=== PATIENT | male | born 1970 | race American Indian/Alaskan Native ===

== ENCOUNTER 2017-11-14 10:14 | Outpatient (CLI) | payer MEDICARE ==
--- NOTE | 2017-11-14 17:40 | XRay Report ---
FINAL REPORT EXAM: XR KNEE BILAT 3V HISTORY: OSTEOARTHRITIS OF KNEE TECHNIQUE: Bilateral knees 5 right 5 left PRIORS: None. FINDINGS: Right knee demonstrates intramedullary bianca within the tibia with locking screws present. Remote healed tibia and fibular fractures noted. No acute fracture identified. No evidence for joint effusion. There is some narrowing of the medial and lateral tibiofemoral joint space. Patella is normal in position Left knee demonstrates is is no fracture or dislocation. Joint spaces appear within normal limits. No focal bony lesions identified. IMPRESSION: Intramedullary bianca within the right tibia ORIF of remote fractures Mild degenerative changes at the right knee with tibiofemoral joint space narrowing
== END 2017-11-14 10:15 | disposition home or self-care (01) ==
LOC: XRAY 10:14
DX: M17.11 Unilateral primary osteoarthritis, right knee (principal); S82.201D Unspecified fracture of shaft of right tibia, subsequent encounter for closed fracture with routine healing; S82.401D Unspecified fracture of shaft of right fibula, subsequent encounter for closed fracture with routine healing; X58.XXXD Exposure to other specified factors, subsequent encounter

== ENCOUNTER 2018-11-13 21:07 | Inpatient (IN) | payer MEDICARE ==
[2018-11-13] MEDS ORDERED: VITAMIN B-1 100 MG, FOLVITE 1 MG, INFUVITE 10 ML in NACL 0.9% 1000 ML 1,000 ML IV ONE (21:12)
[2018-11-13] MEDS ORDERED: ATIVAN IM PRN (21:12)
[2018-11-13] MEDS ORDERED: HALDOL IM PRN (21:12)
--- NOTE | 2018-11-13 21:14 | Emergency Department Report ---
<NABEEL HARRIS - Last Filed: 11/14/18 05:36> ED General Adult HPI - General Chief complaint: Alcohol Stated complaint: ETOH Time Seen by Provider: 11/13/18 21:11 Source: patient, EMS (verbal report received from EMS.ems notes not available at time of chart dictation), RN notes reviewed Mode of arrival: Stretcher Limitations: Altered Mental Status, Other (patient is drunk) - History of Present Illness Initial comments: This is an approximately 48-year-old gentleman, -Serbian, unknown to this provider previously, who is brought to the hospital by EMS for alcohol intoxication. Apparently, patient was drunk at an outside store. Patient is to drunk to give corroborating information or collateral information. EMS reports the patient wasn't violent, only drunk. In the emergency room, the patient is quite intoxicated, and does not exhibit decision-making capacity. At one point in time, the patient tried to get up out of bed, and then urinated on the stretcher. He did not respond to verbal D escalation techniques, and did not respond to show of force. He is placed on a 2013, and required Haldol and Ativan to allow for acquisition of urgent diagnostics necessary to exclude traumatic injury, and to help control patient's behavior to avoid self-harm or harm to staff members or other patients. No pro tional family is available at this point time for collateral information. -: unknown Quality: other Consistency: other Improves with: other Worsens with: other - Related Data Allergies Allergy/AdvReac Type Severity Reaction Status Date / Time No Known Allergies Allergy Verified 11/13/18 22:07 ED Review of Systems Comment: Unobtainable due to pts medical conditions ED Physical Exam - General Limitations: Altered Mental Status, Other (intoxication) General appearance: appears intoxicated - Head Head exam: Present: atraumatic, normocephalic - Eye Eye exam: Present: normal appearance, EOMI - ENT ENT exam: Present: normal exam, normal orophraynx, normal external ear exam - Neck Neck exam: Present: normal inspection (superficial scratch rodriguez noted on the right side of the neck and posterior neck), full ROM. Absent: tenderness, me ningismus - Respiratory Respiratory exam: Present: rhonchi. Absent: respiratory distress, wheezes, rales - Cardiovascular Cardiovascular Exam: Present: normal rhythm, tachycardia, normal heart sounds. Absent: bradycardia, irregular rhythm - GI/Abdominal GI/Abdominal exam: Present: soft. Absent: distended, tenderness, guarding, rebound, rigid, pulsatile mass - exam: Present: normal inspection External exam: Present: normal external exam - Extremities Exam Extremities exam: Present: normal inspection, full ROM, other (2+ pulses noted in the bilateral upper, lower extremities. Compartments soft. No long bony tenderness. The pelvis is stable.). Absent: tenderness, pedal edema, calf tenderness - Back Exam Back exam: Present: normal inspection, full ROM. Absent: tenderness, CVA tenderness (R), paraspinal tenderness, vertebral tenderness - Neurological Exam Neurological exam: Present: altered (unable to complete detailed neurologic examination secondary to alcohol intoxication), other (moving 4 extremities) - Psychiatric Psychiatric exam: Present: agitated - Skin Skin exam: Present: warm ED Course - Reevaluation(s) Reevaluation #1: 11/13/18 22:53 Differential diagnosis, including not limited to: Alcohol intoxication, malnutrition, aspiration pneumonitis, pneumonia, electrolyte derangement, myositis Assessment and plan: 48-year-old gentleman who is intoxicated, lacks decision- making capacity, and is unable to exhibit decision-making capacity. He is placed on the 2013. Noncontrast CT scan of the brain, cervical spine pending interpretation to exclude traumatic injury. Screening laboratory studies have demonstrated hypoglycemia, elevated creatinine kinase, and elevated blood alcohol level. Patient will be given a banana bag, D5 half-normal, 1 amp of D50, and he'll be placed on fingersticks for every 1 hour. Case management and psychiatric consultation have been requested. Reevaluation #2: 11/13/18 23:[address] scan of the brain, cervical spine negative for acute disease. X-ray the chest is negative for acute disease. Reevaluation #3: 11/14/18 04:46 Sleeping comfortably. No acute distress. Repeat blood alcohol level improved. Repeat Accu-Cheks acceptable and within normal limits. We are awaiting the patient to wake up. Reevaluation #4: 11/14/18 04:49 Blood sugar of 49. Additional D50 IV ordered. Additional D5 half-normal ordered. Reevaluation #5: 11/14/18 05:36 Care will be transferred to the oncoming physician, Dr. Luis Tatum to follow-up, and reassessed the patient once he is awake and sober. ED Medical Decision Making - Lab Data Result diagrams: 11/13/18 21:36 11/13/18 21:36 Vital Signs 11/13/18 11/13/18 21:11 21:17 Temperature 98.7 F Pulse Rate 114 H Respiratory 20 20 Rate Blood Pressure 166/94 [Left] O2 Sat by Pulse 100 100 Oximetry Lab Results 11/13/18 11/13/18 11/13/18 Range/Units 21:36 21:36 21:36 WBC 7.5 (4.5-11.0) K/mm3 RBC 4.53 (3.65-5.03) M/mm3 Hgb 14.7 (11.8-15.2) gm/dl Hct 41.9 (35.5-45.6) % MCV 92 (84-94) fl MCH 33 H (28-32) pg MCHC 35 H (32-34) % RDW 14.5 (13.2-15.2) % Plt Count 284 (140-440) K/mm3 Sodium 136 L (137-145) mmol/L Potassium 4.0 (3.6-5.0) mmol/L Chloride 95.1 L (98-107) mmol/L Carbon Dioxide 28 (22-30) mmol/L Anion Gap 17 mmol/L BUN 6 L (9-20) mg/dL Creatinine 0.9 (0.8-1.5) mg/dL Estimated GFR > 60 ml/min BUN/Creatinine Ratio 7 % Glucose 69 L (75-100) mg/dL Calcium 9.3 (8.4-10.2) mg/dL Magnesium 1.80 (1.7-2.3) mg/dL Total Creatine Kinase 689 H (55-170) units/L Salicylates < 0.3 L (2.8-20.0) mg/dL Acetaminophen (10.0-30.0) ug/mL Plasma/Serum Alcohol (0-0.07) % 11/13/18 11/13/18 Range/Units 21:36 21:36 WBC (4.5-11.0) K/mm3 RBC (3.65-5.03) M/mm3 Hgb (11.8-15.2) gm/dl Hct (35.5-45.6) % MCV (84-94) fl MCH (28-32) pg MCHC (32-34) % RDW (13.2-15.2) % Plt Count (140-440) K/mm3 Sodium (137-145) mmol/L Potassium (3.6-5.0) mmol/L Chloride (98-107) mmol/L Carbon Dioxide (22-30) mmol/L Anion Gap mmol/L BUN (9-20) mg/dL Creatinine (0.8-1.5) mg/dL Estimated GFR ml/min BUN/Creatinine Ratio % Glucose (75-100) mg/dL Calcium (8.4-10.2) mg/dL Magnesium (1.7-2.3) mg/dL Total Creatine Kinase (55-170) units/L Salicylates (2.8-20.0) mg/dL Acetaminophen < 5.0 L (10.0-30.0) ug/mL Plasma/Serum Alcohol 0.29 H (0-0.07) % - EKG Data -: EKG Interpreted by Me EKG shows normal: sinus rhythm Rate: tachycardia - EKG Data When compared to previous EKG there are: previous EKG unavailable 11/13/18 22:57 Sinus, tachycardic rhythm, borderline left axis deviation, right bundle branch block, left ventricular hypertrophy, motion artifact, borderline left anterior fascicular block, abnormal EKG, not consistent with ST elevation myocardial infarction. - Radiology Data Radiology results: pending, image reviewed interpreted by me: X-ray of the chest is negative for acute disease. ED Disposition Clinical Impression: Encephalopathy, Hypoglycemia Alcohol intoxication Qualifiers: Complication of substance-induced condition: with unspecified complication Qualified Code(s): F10.929 - Alcohol use, unspecified with intoxication, unspecified Disposition: DC-09 OP ADMIT IP TO THIS HOSP Does the pt Need Aspirin: No Condition: Critical Referrals: GABRIELLE CHAVEZ MD [Primary Care Provider] - 3-5 Days [facility] [Provider Group] - 3-5 Days <RENE TATUM III - Last Filed: 11/14/18 07:36> ED Review of Systems ROS: Stated complaint: ETOH Other details as noted in HPI ED Course Vital Signs 11/13/18 11/13/18 11/14/18 21:11 21:17 01:01 Temperature 98.7 F Pulse Rate 114 H 92 H Respiratory 20 20 16 Rate Blood Pressure 166/94 115/65 [Left] O2 Sat by Pulse 100 100 100 Oximetry 11/14/18 05:08 Temperature Pulse Rate 91 H Respiratory 16 Rate Blood Pressure 155/87 [Left] O2 Sat by Pulse 100 Oximetry - Reevaluation(s) Reevaluation #5: Patient signed out to me from Dr. Harris. The original plan was for patient to be discharged after mental status improved, however patient continues to have low blood sugars and lethargy. Patient was admitted to the hospitalist service. Patient's blood sugar low and will be given D50. Hospitalist will be consulted. 11/14/18 07:23 - Consultations Consultation #1: Hospitalist was consulted for admission. Hospitalist to admit patient. Hospitalist to assume care of patient. 11/14/18 07:36 ED Medical Decision Making - Lab Data Result diagrams: 11/13/18 21:36 11/13/18 21:36 Critical care attestation.: If time is entered above; I have spent that time in minutes in the direct care of this critically ill patient, excluding procedure time. ED Disposition Is pt being admited?: Yes Does the pt Need Aspirin: No Time of Disposition: 07:28
[2018-11-13 21:44] LABS: Hematocrit 41.9 % (35.5-45.6); Hemoglobin 14.7 gm/dl (11.8-15.2); Mean Corpuscular HGB Conc 35 % (32-34); Mean Corpuscular Volume 92 fl (84-94); Platelet Count 284 K/mm3 (140-440); Red Blood Count 4.53 M/mm3 (3.65-5.03); Red Cell Distribution Width 14.5 % (13.2-15.2)
[2018-11-13 22:05] LABS: BUN/Creatinine Ratio 7; Blood Urea Nitrogen 6 mg/dL (9-20); Calcium 9.3 mg/dL (8.4-10.2); Hemolysis Index 22
[2018-11-13] MEDS ORDERED: VITAMIN B-1 PO ONE (22:15)
[2018-11-13] MEDS ORDERED: FOLVITE 1 MG, INFUVITE 10 ML in NACL 0.9% 1000 ML 1,000 ML IV ONE (22:15)
[2018-11-13] MEDS ORDERED: XYLOCAINE 1% MPF 5 mL ONE (22:22)
[2018-11-13] MEDS ORDERED: D50W (25GM) Syringe IV ONE (22:35)
--- NOTE | 2018-11-13 22:59 | Cat Scan Report ---
FINAL REPORT EXAM: CT HEAD/BRAIN WO CON HISTORY: etoh drunk ams TECHNIQUE: CT evaluation was performed of the head without the use of intravenous contrast administr ation. PRIORS: None. FINDINGS: Normal density, size and configuration of the brain parenchyma and CSF containing spaces. No evidence of acute hemorrhage. no mass effect, edema or shift of midline structures. Mucosal thickening of the maxillary and ethmoid air cells. No air-fluid levels. No pathologic fluid collection. Calvarium is n ormal. IMPRESSION: No CT evidence of acute intracranial process. Mucosal thickening of the paranasal sinuses, no air-fluid levels.
[2018-11-13] MEDS ORDERED: D5/0.45NS 1,000 ML IV SCH (23:00)
--- NOTE | 2018-11-13 23:00 | XRay Report ---
FINAL REPORT EXAM: XR CHEST 1V AP HISTORY: etoh drunk ams TECHNIQUE: Single AP portable radiograph of the chest was obtained. PRIORS: None. FINDINGS: There are no focal consolidations to suggest pneumonia. No large pleural effusion. No pneumothorax. Cardiac silhouette and mediastinal structures are unremarkable. No acute osseous abnormality identifi ed. Postsurgical changes of the distal right humerus noted. IMPRESSION: No radiographic evidence of acute cardiopulmonary disease.
--- NOTE | 2018-11-13 23:05 | Cat Scan Report ---
FINAL REPORT EXAM: CT CERVICAL SPINE WO CON HISTORY: etoh drunk ams TECHNIQUE: CT evaluation was performed of the cervical spine without the use of intravenous contrast administration. Coronal and sagittal imaging also provided for interpretation. PRIORS: None. FINDINGS: CT evaluation of the cervical spine reveals no evidence of acute fracture or subluxation. Alignment is normal. The prevertebral soft tissues are unremarkable. Mild endplate and articular facet degener ative changes, endplate changes are most prominent at C6-C7 right bulky paravertebral ossification is noted anteriorly. The atlanto dens interval is maintained. Mucosal thickening of the maxillary sinus es. Mild carotid atherosclerotic vascular calcifications. Mild apical emphysematous changes. IMPRESSION: No CT evidence of acute fracture or subluxation of the cervical spine. Mild multilevel cervical degenerative changes most prominent at C6-C7.
[2018-11-14] MEDS: D50W (25GM) Syringe IV PRN ×2 (04:55→10:12)
[2018-11-14] MEDS ORDERED: D5/0.45NS 1,000 ML IV SCH (05:00)
[2018-11-14] MEDS ORDERED: ZOFRAN IV PRN (08:37)
[2018-11-14] MEDS ORDERED: TYLENOL PO PRN (08:37)
[2018-11-14] MEDS ORDERED: SODIUM CHLORIDE FLUSH SYRINGE 10 ML IV PRN (08:37)
[2018-11-14] MEDS ORDERED: ATIVAN IV PRN ×2 (08:37→08:38)
--- NOTE | 2018-11-14 08:43 | History and Physical Report ---
History of Present Illness Chief complaint: Brought in by EMS for public intoxication History of present illness: 48-year-old man who presents to the hospital, he was brought by EMS for alcohol intoxication. He was found drunk outside the store. Patient was too drunk when he was in the ER to give corroborating or collateral information, the EMS reports that he was not violence, just incapacitated and inebriated. He was so inebriated that he did not exhibit decision-making capacity, he urinated on the stretcher in the EMS, and then he was placed on a 2013 called and brought to the ER. The patient was not able to give any history, he was somnolent, speaking a few words and falling back asleep. All history was taken from chart and from ED physician and nurses Past History Past Medical History: other (unable to obtain history altered mental status) Past Surgical History: Other (unable to obtain history altered mental status) Social history: other (unable to obtain history altered mental status) Family history: other (unable to obtain history altered mental status) Medications and Allergies Allergies Allergy/AdvReac Type Severity Reaction Status Date / Time No Known Allergies Allergy Verified 11/13/18 22:07 Home Medications Medication Instructions Recorded Confirmed Last Taken Type RX: Unobtainable 11/14/18 11/14/18 Unknown History Active Meds: Active Medications Dextrose (D50w (25gm) Syringe) 50 ml IV PRN PRN PRN Reason: Hypoglycemia Last Admin: 11/14/18 04:55 Dose: 50 ml Documented by: Haloperidol Lactate (Haldol) 5 mg IM Q6HR PRN PRN Reason: Agitation Last Admin: 11/13/18 21:31 Dose: 5 mg Documented by: Dextrose/Sodium Chloride (D5/0.45ns) 1,000 mls @ 0 mls/hr IV DIRECT OLENA Last Admin: 11/14/18 05:08 Dose: 999 mls/hr Documented by: Lorazepam (Ativan) 2 mg IM Q4HR PRN PRN Reason: Agitation Last Admin: 11/13/18 21:31 Dose: 2 mg Documented by: Review of Systems ROS unobtainable: due to mental status Exam - Constitutional Vitals: Temp Pulse Resp BP Pulse Ox 98.7 F 91 H 16 155/87 100 11/13/18 21:11 11/14/18 05:08 11/14/18 05:08 11/14/18 05:08 11/14/18 05:08 General appearance: Present: no acute distress, well-nourished - EENT Eyes: Present: PERRL ENT: hearing intact, clear oral mucosa - Neck Neck: Present: supple, normal ROM - Respiratory Respiratory effort: normal Respiratory: bilateral: CTA - Cardiovascular Heart Sounds: Present: S1 & S2. Absent: rub, click - Extremities Extremities: pulses symmetrical, No edema Peripheral Pulses: within normal limits - Abdominal General gastrointestinal: Present: soft, non-tender, non-distended, normal bowel sounds Male genitourinary: Present: normal - Integumentary Integumentary: Present: clear, warm, dry - Musculoskeletal Musculoskeletal: other (patient is somnolent and confused, but has random and purposeful movements of his extremities, but falls back asleep) - Psychiatric Psychiatric: other (somnolent) - Neurologic Neurologic: other (patient is somnolent) Results - Labs CBC & Chem 7: 11/13/18 21:36 11/13/18 21:36 Labs: Laboratory Last Values WBC 7.5 K/mm3 (4.5-11.0) 11/13/18 21:36 RBC 4.53 M/mm3 (3.65-5.03) 11/13/18 21:36 Hgb 14.7 gm/dl (11.8-15.2) 11/13/18 21:36 Hct 41.9 % (35.5-45.6) 11/13/18 21:36 MCV 92 fl (84-94) 11/13/18 21:36 MCH 33 pg (28-32) H 11/13/18 21:36 MCHC 35 % (32-34) H 11/13/18 21:36 RDW 14.5 % (13.2-15.2) 11/13/18 21:36 Plt Count 284 K/mm3 (140-440) 11/13/18 21:36 Sodium 136 mmol/L (137-145) L 11/13/18 21:36 Potassium 4.0 mmol/L (3.6-5.0) 11/13/18 21:36 Chloride 95.1 mmol/L (98-107) L 11/13/18 21:36 Carbon Dioxide 28 mmol/L (22-30) 11/13/18 21:36 Anion Gap 17 mmol/L 11/13/18 21:36 BUN 6 mg/dL (9-20) L 11/13/18 21:36 Creatinine 0.9 mg/dL (0.8-1.5) 11/13/18 21:36 Estimated GFR > 60 ml/min 11/13/18 21:36 BUN/Creatinine Ratio 7 % 11/13/18 21:36 Glucose 69 mg/dL (75-100) L 11/13/18 21:36 POC Glucose 74 (70-105) 11/14/18 08:35 Calcium 9.3 mg/dL (8.4-10.2) 11/13/18 21:36 Magnesium 1.80 mg/dL (1.7-2.3) 11/13/18 21:36 Total Creatine Kinase 689 units/L (55-170) H 11/13/18 21:36 Salicylates < 0.3 mg/dL (2.8-20.0) L 11/13/18 21:36 Acetaminophen < 5.0 ug/mL (10.0-30.0) L 11/13/18 21:36 Plasma/Serum Alcohol < 0.01 % (0-0.07) 11/14/18 02:16 - Imaging and Cardiology Chest x-ray: image reviewed CT Scan - head: image reviewed Assessment and Plan Assessment and plan: 48-year-old man who was brought to the hospital by EMS after he was found drunk outside the store. He was confused, lactic decision-making capacity, therefore was brought into the hospital on the 2012 hold. -CT head no evidence of acute intra-cranial process Chest x-ray no evidence of acute cardiopulmonary disease CT C-spine no evidence of acute fracture or subluxation mild multilevel degenerative changes most prominent at C6 to C7 On presentation patient had elevated blood alcohol level, repeat is now normal Hospital course/plan CIWA protocol, IV fluids, dextrose drip, thiamine and folate Optimize blood pressure medications Ammonia level within normal limits Diagnoses Alcohol intoxication Acute toxic encephalopathy Alcohol withdrawal Hypoglycemia Hypertensive urgency Nontraumatic rhabdomyolysis Dvt ppx chemical
[2018-11-14] MEDS ORDERED: VITAMIN B1 IV SCH ×2 (10:00)
[2018-11-14] MEDS ORDERED: [UNRECOGNIZED DRUG - OTHER] IV SCH (10:00)
[2018-11-14] MEDS ORDERED: FOLVITE IV SCH ×2 (10:00)
[2018-11-14] MEDS ORDERED: [UNRECOGNIZED DRUG - OTHER] IV SCH (10:00)
[2018-11-14] MEDS ORDERED: D5 IV SCH ×2 (10:00)
[2018-11-14] MEDS: SODIUM CHLORIDE FLUSH SYRINGE 10 ML IV SCH ×2 (10:56→22:48)
[2018-11-14] MEDS: D5/0.45NS 1,000 ML IV SCH ×2 (10:57→20:57)
[2018-11-14] MEDS: LOVENOX SUB-Q SCH ×2 (11:04→15:13)
[2018-11-14] MEDS: VITAMIN B-1 PO SCH ×2 (11:04→15:13)
[2018-11-14] MEDS: FOLVITE PO SCH ×2 (11:04→15:13)
--- NOTE | 2018-11-14 14:27 | Consultation ---
History of Present Illness - Reason for Consult Consult date: 11/14/18 Reason for consult: Initial Psychiatric Evaluation - Chief Complaint Chief complaint: " I have Bipolar." - History of Present Psychiatric Illness Patient is a 48 year old male who presents to the emergency room with alcohol intoxication. Patient was found drunk at an outside store. Upon admission, patient was too intoxicated to give corroborating information or collateral information. Per assigned RN, patient has been asleep since this morning. Psychiatry was consulted to complete a mental health evaluation. Today the patient is calm and cooperative during the assessment. Throughout the assessment patient is lethargic with impoverished thought content . He reports that he was diagnosed with Bipolar in 2017. Currently he takes Seroquel 100mg po QHS for mood. Patient's current CIWA 6. He endorses mood fluctuations. He denies being easily distracted, irritated, suicidal/homicidal ideation, and psychosis. Current Psychiatric Medications: Seroquel 100mg po QHS. Past Psychiatric History: Bipolar Disorder (2017); 2 previous inpatient psychiatric hospitalizations ([facility]); no outpatient psychiatrist; no previous suicide attempt. Past Medication Trials: Patient denies. History of Trauma/Abuse: Patient denies sexual, physical, and mental abuse. History of Alcohol/Drug Abuse: alcohol- daily, 6-12 ppd, last drink-"last night"; first drink- 17 years ago; Cocaine- every 6 months, last use - " last week," first use- Age 14. Social History: 6th grade- highest level of education; SSI- $780.00 per month- income; no children; lives with mother in [place], [place]; limited support system. Family History of Psychiatric Illness and Substance Abuse: Patient denies family history of psychiatric illness and substance abuse. Medications and Allergies Allergies Allergy/AdvReac Type Severity Reaction Status Date / Time No Known Allergies Allergy Verified 11/13/18 22:07 Home Medications Medication Instructions Recorded Confirmed Last Taken Type Unobtainable 11/14/18 11/14/18 Unknown History Active Meds: Active Medications Acetaminophen (Tylenol) 650 mg PO Q4H PRN PRN Reason: Pain MILD(1-3)/Fever >100.5/HERNANDEZ Dextrose (D50w (25gm) Syringe) 50 ml IV PRN PRN PRN Reason: Hypoglycemia Last Admin: 11/14/18 10:12 Dose: 50 ml Documented by: Enoxaparin Sodium (Lovenox) 40 mg SUB-Q QDAY COUNT INCLUDES THE [facility] Last Admin: 11/14/18 11:04 Dose: Not Given Documented by: Folic Acid (Folvite) 1 mg PO QDAY COUNT INCLUDES THE [facility] Last Admin: 11/14/18 11:04 Dose: Not Given Documented by: Haloperidol Lactate (Haldol) 5 mg IM Q6HR PRN PRN Reason: Agitation Last Admin: 11/13/18 21:31 Dose: 5 mg Documented by: Dextrose/Sodium Chloride (D5/0.45ns) 1,000 mls @ 125 mls/hr IV DIRECT COUNT INCLUDES THE [facility] Last Admin: 11/14/18 10:57 Dose: 125 mls/hr Documented by: Lorazepam (Ativan) 4 mg IV Q15MIN PRN PRN Reason: CIWA-Ar >25 Lorazepam (Ativan) 2 mg PO Q1H PRN PRN Reason: CIWA-Ar 8-15 Lorazepam (Ativan) 4 mg IV Q1H PRN PRN Reason: CIWA-Ar 16-25 Ondansetron HCl (Zofran) 4 mg IV Q8H PRN PRN Reason: Nausea And Vomiting Sodium Chloride (Sodium Chloride Flush Syringe 10 Ml) 10 ml IV BID COUNT INCLUDES THE [facility] Last Admin: 11/14/18 10:56 Dose: 10 ml Documented by: Sodium Chloride (Sodium Chloride Flush Syringe 10 Ml) 10 ml IV PRN PRN PRN Reason: LINE FLUSH Thiamine HCl (Vitamin B-1) 100 mg PO QDAY COUNT INCLUDES THE [facility] Last Admin: 11/14/18 11:04 Dose: Not Given Documented by: Mental Status Exam - Vital signs Last Vital Signs Temp 99.7 F H 11/14/18 12:09 Pulse 89 11/14/18 12:09 Resp 22 11/14/18 12:09 BP 161/83 11/14/18 12:09 Pulse Ox 98 11/14/18 12:09 - Exam Narrative exam: Mental Status Exam Appearance: dressed in hospital gown Behavior: calm and cooperative Speech: regular rate with and tone; difficult to understand at times Mood: "better" Affect: congruent to mood Thought Process: circumstantial Thought Content: impoverished; no gestures of SI/HI's, A/VH's, delusions Motor Activity: laying in bed Cognition: A/O x 2 ; not oriented to date Insight: poor Judgment: variable Results Result Diagrams: 11/13/18 21:36 11/13/18 21:36 Abnormal lab results 11/13/18 11/13/18 11/13/18 Range/Units 21:36 21:36 21:36 MCH 33 H (28-32) pg MCHC 35 H (32-34) % Sodium 136 L (137-145) mmol/L Chloride 95.1 L (98-107) mmol/L BUN 6 L (9-20) mg/dL Glucose 69 L (75-100) mg/dL POC Glucose (70-105) Total Creatine Kinase 689 H (55-170) units/L Salicylates < 0.3 L (2.8-20.0) mg/dL Acetaminophen (10.0-30.0) ug/mL Plasma/Serum Alcohol (0-0.07) % 11/13/18 11/13/18 11/14/18 Range/Units 21:36 21:36 00:10 MCH (28-32) pg MCHC (32-34) % Sodium (137-145) mmol/L Chloride (98-107) mmol/L BUN (9-20) mg/dL Glucose (75-100) mg/dL POC Glucose 182 H (70-105) Total Creatine Kinase (55-170) units/L Salicylates (2.8-20.0) mg/dL Acetaminophen < 5.0 L (10.0-30.0) ug/mL Plasma/Serum Alcohol 0.29 H (0-0.07) % 11/14/18 11/14/18 11/14/18 Range/Units 01:44 03:05 04:51 MCH (28-32) pg MCHC (32-34) % Sodium (137-145) mmol/L Chloride (98-107) mmol/L BUN (9-20) mg/dL Glucose (75-100) mg/dL POC Glucose 140 H 134 H 49 L (70-105) Total Creatine Kinase (55-170) units/L Salicylates (2.8-20.0) mg/dL Acetaminophen (10.0-30.0) ug/mL Plasma/Serum Alcohol (0-0.07) % 02/06/19 02/06/19 02/06/19 Range/Units 05:37 07:21 12:11 MCH (28-32) pg MCHC (32-34) % Sodium (137-145) mmol/L Chloride (98-107) mmol/L BUN (9-20) mg/dL Glucose (75-100) mg/dL POC Glucose 210 H 61 L 106 H (70-105) Total Creatine Kinase (55-170) units/L Salicylates (2.8-20.0) mg/dL Acetaminophen (10.0-30.0) ug/mL Plasma/Serum Alcohol (0-0.07) % All other labs normal. Assessment and Plan Assessment and plan: Impression: PPHx Bipolar Disorder. Alcohol Use Disorder, severe. Today the patient is calm and cooperative during the assessment. Current CIWA 6. He denies SI/HI's, A/VH's, and delusions. Recommendation/Plan: 1. Will reassess in 24 hours. 2. Attempt to gain collateral. 3. Restart home medication Seroquel 100mg po QHS mood/psychosis. Discussed possible metabolic side effects of with the patient. 4. Encouraged patient to abstain from recreational drug/alcohol use. 5. Continue CIWA. Disposition: Will attempt to gain collateral. Will reassess in 24 hours[address] Will staff with Dr. Thierry Wheat.
[2018-11-14] MEDS ORDERED: APRESOLINE IV PRN (18:04)
[2018-11-14] MEDS: ZESTRIL PO SCH (20:57)
[2018-11-15] MEDS: ATIVAN PO PRN ×3 (01:24→17:57)
[2018-11-15] MEDS: D5/0.45NS 1,000 ML IV SCH (05:59)
[2018-11-15 06:43] LABS: Alanine Aminotransferase 14 units/L (7-56); Albumin 2.8 g/dL (3.9-5); BUN/Creatinine Ratio 8; Bilirubin,Direct < 0.2 mg/dL (0-0.2); Blood Urea Nitrogen 4 mg/dL (9-20); Calcium 8.1 mg/dL (8.4-10.2); Hemolysis Index 11
[2018-11-15] MEDS: LOVENOX SUB-Q SCH (10:09)
[2018-11-15] MEDS: SODIUM CHLORIDE FLUSH SYRINGE 10 ML IV SCH ×2 (10:09→22:26)
[2018-11-15] MEDS: ZESTRIL PO SCH (10:10)
[2018-11-15] MEDS: FOLVITE PO SCH (10:10)
[2018-11-15] MEDS: VITAMIN B-1 PO SCH (10:14)
--- NOTE | 2018-11-15 10:44 | Progress Note ---
Subjective - Reason for Consult Consult date: 11/15/18 Reason for consult: Psychiatry Follow-up - Chief Complaint Chief complaint: " I need to stop drinking" 48 year old male who presents to the emergency room with alcohol intoxication. Today the patient is calm and cooperative during the assessment. He stated that he is aware that his drinking can cause major medical issues. He stated that he would like to be referred to rehab services when discharged. Per collateral information from his sister Bella zimmer at [phone], she stated that her brother has hx of alcohol abuse. She stated that be does take medication for bipolar do. She didn't know that her brother was hospitalized per our conversation. The patient denies SI/HI's and AVH's. He denies any side effects of hie medication. Mental Status Exam - Vital signs Last Vital Signs Temp 97.6 F 11/15/18 05:38 Pulse 72 11/15/18 05:38 Resp 20 11/15/18 05:38 BP 121/72 11/15/18 10:10 Pulse Ox 99 11/15/18 05:38 - Exam Narrative exam: MSE: Appearance: dressed in hospital gown Behavior: calm and cooperative Speech: regular rate with and tone; difficult to understand at times Mood: "okay" Affect: congruent to mood Thought Process: circumstantial Thought Content:denies SI/HI's and A/VH's Motor Activity: laying in bed Cognition: A/O x 3 Insight: fair Judgment: fair Assessment and Plan Impression: Hx of Bipolar DO per the patient. Alcohol Use Disorder. Today the patient is calm and cooperative during the assessment. No acute withdrawals noted (etoh). Recommendation/Plan: Rescind 2012. Continue home medication Seroquel 100 mg PO HS for mood. Discussed possible metabolic side effects of Seroquel with the patient. Encouraged the patient to abstain from recreational drug use. Dispo. The patient can follow up with [facility] for outpatient psy services. Also, the patient can volunteer for [facility] [employer] [facility]. Will staff with Dr Irizarry.
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
[2018-11-15] MEDS ORDERED: HABITROL TD SCH (14:00)
[2018-11-15] MEDS ORDERED: NORVASC PO SCH (15:00)
[2018-11-15] MEDS ORDERED: ALUM-MAG HYDROX-SIMETH 200-200-20MG/5ML PO PRN (23:29)
[2018-11-16 05:18] VITALS: BP 117/66
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
== END 2018-11-16 09:25 | disposition left against medical advice (07) | DRG 92 ==
LOC: ED 21:07 → 4A 11-14 07:36 → 3A 11-14 09:45
PROVIDERS: ADMIT Internal Medicine; ATTEND Internal Medicine
DX: G92 Toxic encephalopathy (principal); M62.82 Rhabdomyolysis; F10.239 Alcohol dependence with withdrawal, unspecified; F10.929 Alcohol use, unspecified with intoxication, unspecified; E16.2 Hypoglycemia, unspecified; I16.0 Hypertensive urgency; F31.9 Bipolar disorder, unspecified; Z53.21 Procedure and treatment not carried out due to patient leaving prior to being seen by health care provider; F17.210 Nicotine dependence, cigarettes, uncomplicated; Z71.6 Tobacco abuse counseling
CPT/HCPCS: 36415; 70450; 71045; 72125; 80048; 80076; 80320; 82140; 82550; 82962; 83735; 84100; 85027; 87116; 93005; 93010; 96365; 96366; 96372; 96375; 99406; G0378; G0480; J0360; J1630; J1650; J2060; J3411; J7030

== ENCOUNTER 2019-04-12 21:48 | Emergency (ER) | payer MEDICARE ==
[2019-04-12 22:44] VITALS: BP 150/91
[2019-04-12 23:13] LABS: Basophils # (Auto) 0.1 K/mm3 (0.0-0.1); Basophils % (Auto) 1.2 % (0.0-1.8); Eosinophils # (Auto) 0.3 K/mm3 (0.0-0.4); Eosinophils % (Auto) 4.1 % (0.0-4.3); Hematocrit 39.4 % (35.5-45.6); Hemoglobin 13.2 gm/dl (11.8-15.2); Lymphocytes # (Auto) 3.5 K/mm3 (1.2-5.4); Lymphocytes % (Auto) 48.6 % (13.4-35.0); Mean Corpuscular HGB Conc 34 % (32-34); Mean Corpuscular Volume 95 fl (84-94); Monocytes # (Auto) 0.5 K/mm3 (0.0-0.8); Monocytes % (Auto) 6.8 % (0.0-7.3); Platelet Count 279 K/mm3 (140-440); Red Blood Count 4.17 M/mm3 (3.65-5.03); Red Cell Distribution Width 15.9 % (13.2-15.2)
[2019-04-12 23:34] LABS: BUN/Creatinine Ratio 16; Blood Urea Nitrogen 11 mg/dL (9-20); Calcium 8.2 mg/dL (8.4-10.2); Hemolysis Index 55
--- NOTE | 2019-04-13 00:51 | Emergency Department Report ---
ED General Adult HPI - General Chief complaint: Alcohol Stated complaint: ETOH Time Seen by Provider: 04/12/19 22:46 Source: EMS Mode of arrival: Stretcher Limitations: Other - History of Present Illness Initial comments: Patient is a 48-year-old -[place] male who was found lying on the ground outside. Patient smelled of alcohol, slurring his speech. Patient is unable to give any additional history at this time as he is sleeping Severity scale (0 -10): 0 - Related Data Home Medications Medication Instructions Recorded Confirmed Last Taken Unobtainable 11/14/18 11/14/18 Unknown Allergies Allergy/AdvReac Type Severity Reaction Status Date / Time No Known Allergies Allergy Verified 11/13/18 22:07 ED Review of Systems ROS: Stated complaint: ETOH Other details as noted in HPI Comment: Unobtainable due to pts medical conditions ED Past Medical Hx - Past Medical History Previous Medical History?: Yes Hx Hypertension: Yes - Surgical History Past Surgical History?: No - Social History Smoking Status: Current Every Day Smoker Substance Use Type: Alcohol - Medications Home Medications: Home Medications Medication Instructions Recorded Confirmed Last Taken Type Unobtainable 11/14/18 11/14/18 Unknown History ED Physical Exam - General Limitations: Other General appearance: in no apparent distress, appears intoxicated - Head Head exam: Present: atraumatic, normocephalic - Eye Eye exam: Present: normal appearance - ENT ENT exam: Present: mucous membranes moist - Neck Neck exam: Present: normal inspection - Respiratory Respiratory exam: Present: normal lung sounds bilaterally. Absent: respiratory distress, wheezes, rales, rhonchi - Cardiovascular Cardiovascular Exam: Present: regular rate, normal rhythm, normal heart sounds. Absent: systolic murmur, diastolic murmur, rubs, gallop - GI/Abdominal GI/Abdominal exam: Present: soft, normal bowel sounds. Absent: distended, tenderness, guarding, rebound, rigid - Rectal Rectal exam: Present: deferred - Extremities Exam Extremities exam: Present: normal inspection - Back Exam Back exam: Present: normal inspection - Neurological Exam Neurological exam: Present: alert, altered - Psychiatric Psychiatric exam: Present: normal affect, normal mood - Skin Skin exam: Present: warm, dry, intact, normal color. Absent: rash ED Course Vital Signs 04/12/19 04/13/19 22:40 00:52 Temperature 97.5 F L Pulse Rate 71 Respiratory 18 16 Rate Blood Pressure 150/91 Blood Pressure 150/91 [Right] O2 Sat by Pulse 100 Oximetry ED Medical Decision Making - Lab Data Result diagrams: 04/12/19 22:58 04/12/19 22:58 Lab Results 04/12/19 04/12/19 04/12/19 Range/Units 22:58 22:58 22:58 WBC (4.5-11.0) K/mm3 RBC (3.65-5.03) M/mm3 Hgb (11.8-15.2) gm/dl Hct (35.5-45.6) % MCV (84-94) fl MCH (28-32) pg MCHC (32-34) % RDW (13.2-15.2) % Plt Count (140-440) K/mm3 Lymph % (Auto) (13.4-35.0) % Estill % (Auto) (0.0-7.3) % Eos % (Auto) (0.0-4.3) % Baso % (Auto) (0.0-1.8) % Lymph # (1.2-5.4) K/mm3 Estill # (0.0-0.8) K/mm3 Eos # (0.0-0.4) K/mm3 Baso # (0.0-0.1) K/mm3 Seg Neutrophils % (40.0-70.0) % Seg Neutrophils # (1.8-7.7) K/mm3 Sodium 141 (137-145) mmol/L Potassium 4.2 (3.6-5.0) mmol/L Chloride 109.3 H (98-107) mmol/L Carbon Dioxide 18 L (22-30) mmol/L Anion Gap 18 mmol/L BUN 11 (9-20) mg/dL Creatinine 0.7 L (0.8-1.5) mg/dL Estimated GFR > 60 ml/min BUN/Creatinine Ratio 16 % Glucose 83 (75-100) mg/dL Calcium 8.2 L (8.4-10.2) mg/dL Salicylates < 0.3 L (2.8-20.0) mg/dL Acetaminophen < 5.0 L (10.0-30.0) ug/mL Plasma/Serum Alcohol (0-0.07) % 04/12/19 04/12/19 Range/Units 22:58 22:58 WBC 7.2 (4.5-11.0) K/mm3 RBC 4.17 (3.65-5.03) M/mm3 Hgb 13.2 (11.8-15.2) gm/dl Hct 39.4 (35.5-45.6) % MCV 95 H (84-94) fl MCH 32 (28-32) pg MCHC 34 (32-34) % RDW 15.9 H (13.2-15.2) % Plt Count 279 (140-440) K/mm3 Lymph % (Auto) 48.6 H (13.4-35.0) % Estill % (Auto) 6.8 (0.0-7.3) % Eos % (Auto) 4.1 (0.0-4.3) % Baso % (Auto) 1.2 (0.0-1.8) % Lymph # 3.5 (1.2-5.4) K/mm3 Estill # 0.5 (0.0-0.8) K/mm3 Eos # 0.3 (0.0-0.4) K/mm3 Baso # 0.1 (0.0-0.1) K/mm3 Seg Neutrophils % 39.3 L (40.0-70.0) % Seg Neutrophils # 2.8 (1.8-7.7) K/mm3 Sodium (137-145) mmol/L Potassium (3.6-5.0) mmol/L Chloride (98-107) mmol/L Carbon Dioxide (22-30) mmol/L Anion Gap mmol/L BUN (9-20) mg/dL Creatinine (0.8-1.5) mg/dL Estimated GFR ml/min BUN/Creatinine Ratio % Glucose (75-100) mg/dL Calcium (8.4-10.2) mg/dL Salicylates (2.8-20.0) mg/dL Acetaminophen (10.0-30.0) ug/mL Plasma/Serum Alcohol 0.26 H (0-0.07) % - Medical Decision Making Patient was found to be intoxicated with alcohol. Patient can be discharged home when he reaches clinical sobriety. Critical care attestation.: If time is entered above; I have spent that time in minutes in the direct care of this critically ill patient, excluding procedure time. ED Disposition Clinical Impression: Alcohol intoxication Qualifiers: Complication of substance-induced condition: with unspecified complication Qualified Code(s): F10.929 - Alcohol use, unspecified with intoxication, unspecified Disposition: DC-01 TO HOME OR SELFCARE Is pt being admited?: No Does the pt Need Aspirin: No Condition: Stable Instructions: Alcohol Intoxication (ED), Abuse of Alcohol (ED) Referrals: MAXINE MUSA MD [Primary Care Provider] - 3-5 Days Time of Disposition: 04:24
== END 2019-04-13 07:12 | disposition home or self-care (01) ==
LOC: ED 21:48
DX: F10.929 Alcohol use, unspecified with intoxication, unspecified (principal); I10 Essential (primary) hypertension; F17.200 Nicotine dependence, unspecified, uncomplicated
CPT/HCPCS: 36415; 80048; 85025; 99284; G0480; 80320

== ENCOUNTER 2020-06-01 18:40 | Emergency (ER) | payer MEDICARE ==
[2020-06-01 19:02] VITALS: BP 142/90
--- NOTE | 2020-06-01 20:11 | Emergency Department Report ---
Blank Doc - Documentation Documentation: 49-year-old male that presents with ETOH and altered. This initial assessment/diagnostic orders/clinical plan/treatment(s) is/are subject to change based on patient's health status, clinical progression and re- assessment by fellow clinical providers in the ED. Further treatment and workup at subsequent clinical providers discretion. Patient/guardians urged not to elope from the ED as their condition may be serious if not clinically assessed and managed. Initial orders include: 1- Patient sent to MAIN ED for further evaluation and treatment 2- labs 3- CT head 4- EKG
== END 2020-06-01 22:00 | disposition left against medical advice (07) ==
LOC: ED 18:40
DX: F10.129 Alcohol abuse with intoxication, unspecified (principal); Z53.21 Procedure and treatment not carried out due to patient leaving prior to being seen by health care provider

== ENCOUNTER 2022-03-06 19:59 | Emergency (ER) | payer MEDICARE ==
[2022-03-06] MEDS ORDERED: LORazepam 2 MG/ML VIAL IV ONE (20:47)
--- NOTE | 2022-03-06 21:36 | Emergency Department Report ---
ED Seizure HPI - General Chief Complaint: Seizure Stated Complaint: SEIZURE Time Seen by Provider: 03/06/22 20:42 Source: EMS Mode of arrival: Stretcher Limitations: No Limitations - History of Present Illness Initial Comments: Patient is a 51-year-old male with history of seizures brought in by EMS after having a seizure at [facility]. He admits to drinking alcohol and using methamphetamine. States he currently does not take anything for his seizures. - Related Data Previous Rx's Medication Instructions Recorded Last Taken Type Multivitamin with Folic Acid [[facility] 400 mcg PO QDAY #30 tablet 06/18/20 Unknown Rx One Daily Essential Tablet] chlordiazePOXIDE [Librium] 25 mg PO Q6H PRN #25 capsule 06/18/20 Unknown Rx Allergies Allergy/AdvReac Type Severity Reaction Status Date / Time No Known Allergies Allergy Verified 11/13/18 22:07 ED Review of Systems ROS: Stated complaint: SEIZURE Other details as noted in HPI Constitutional: denies: chills, fever Respiratory: denies: cough, shortness of breath, wheezing Cardiovascular: denies: chest pain, palpitations Gastrointestinal: denies: abdominal pain, nausea, diarrhea Musculoskeletal: denies: back pain, joint swelling, arthralgia Skin: denies: rash, lesions Neurological: denies: headache, weakness, paresthesias Psychiatric: denies: anxiety, depression ED Past Medical Hx - Past Medical History Previous Medical History?: Yes Hx Hypertension: Yes Hx Congestive Heart Failure: Yes Hx Seizures: Yes Hx Psychiatric Treatment: Yes (schizophrenia, bi polar) Additional medical history: ETOH abuse - Social History Smoking Status: Current Every Day Smoker Substance Use Type: Alcohol, Methamphetamines - Medications Home Medications: Home Medications Medication Instructions Recorded Confirmed Last Taken Type Multivitamin with Folic Acid [[facility] 400 mcg PO QDAY #30 tablet 06/18/20 Unknown Rx One Daily Essential Tablet] chlordiazePOXIDE [Librium] 25 mg PO Q6H PRN #25 capsule 06/18/20 Unknown Rx ED Physical Exam - General Limitations: No Limitations General appearance: other (Postictal versus intoxicated) - Head Head exam: Present: atraumatic, normocephalic - Neck Neck exam: Present: normal inspection - Respiratory Respiratory exam: Present: normal lung sounds bilaterally, respiratory distress - Cardiovascular Cardiovascular Exam: Present: regular rate, normal rhythm, normal heart sounds - GI/Abdominal GI/Abdominal exam: Present: soft. Absent: distended, tenderness - Neurological Exam Neurological exam: Present: other (Postictal versus intoxicated) - Skin Skin exam: Present: warm, dry, intact, normal color ED Course Vital Signs 03/06/22 03/06/22 03/06/22 20:08 21:28 21:30 Temperature 97.2 F L Pulse Rate 90 86 Respiratory 18 16 Rate Blood Pressure 159/91 161/72 O2 Sat by Pulse 100 99 Oximetry 03/06/22 03/06/22 03/06/22 21:46 22:00 22:03 Temperature Pulse Rate 91 H 75 Respiratory 16 15 Rate Blood Pressure 141/78 127/78 O2 Sat by Pulse 97 97 97 Oximetry 03/06/22 03/06/22 03/06/22 22:16 22:30 22:46 Temperature Pulse Rate 77 79 84 Respiratory 18 13 21 Rate Blood Pressure 113/73 106/65 99/64 O2 Sat by Pulse 99 99 100 Oximetry 03/06/22 03/06/22 03/06/22 23:00 23:16 23:30 Temperature Pulse Rate 83 79 83 Respiratory 12 14 14 Rate Blood Pressure 103/63 104/66 98/63 O2 Sat by Pulse 99 100 99 Oximetry 03/06/22 03/07/22 03/07/22 23:46 00:00 00:04 Temperature Pulse Rate 85 84 75 Respiratory 14 15 15 Rate Blood Pressure 103/61 111/71 109/69 O2 Sat by Pulse 100 99 100 Oximetry 03/07/22 03/07/22 03/07/22 00:16 00:30 00:46 Temperature Pulse Rate 75 80 78 Respiratory 15 14 15 Rate Blood Pressure 109/69 105/59 101/66 O2 Sat by Pulse 100 100 100 Oximetry 03/07/22 03/07/22 03/07/22 01:00 01:16 01:30 Temperature Pulse Rate 79 81 94 H Respiratory 14 14 14 Rate Blood Pressure 102/64 102/64 105/64 O2 Sat by Pulse 99 99 98 Oximetry 03/07/22 03/07/22 03/07/22 01:46 02:00 02:16 Temperature Pulse Rate 75 74 75 Respiratory 13 14 14 Rate Blood Pressure 121/75 103/55 95/50 O2 Sat by Pulse 100 100 100 Oximetry 05/30/22 05/30/22 05/30/22 02:30 02:46 03:00 Temperature Pulse Rate 77 72 87 Respiratory 13 14 24 Rate Blood Pressure 97/47 119/73 108/67 O2 Sat by Pulse 99 99 97 Oximetry 03/07/22 03/07/22 03/07/22 03:16 03:30 03:46 Temperature Pulse Rate 91 H 90 75 Respiratory 17 20 14 Rate Blood Pressure 108/67 108/67 134/87 O2 Sat by Pulse 100 99 100 Oximetry 03/07/22 03/07/22 03/07/22 04:00 04:16 04:30 Temperature Pulse Rate 67 72 75 Respiratory 14 14 15 Rate Blood Pressure 119/62 108/57 104/53 O2 Sat by Pulse 98 100 99 Oximetry 03/07/22 03/07/22 03/07/22 04:46 05:00 05:16 Temperature Pulse Rate 91 H 66 78 Respiratory 17 13 16 Rate Blood Pressure 110/54 112/58 146/73 O2 Sat by Pulse 96 96 100 Oximetry 03/07/22 03/07/22 03/07/22 05:30 05:46 06:00 Temperature Pulse Rate 99 H 104 H 88 Respiratory 30 H 24 16 Rate Blood Pressure 146/73 140/122 139/89 O2 Sat by Pulse 81 L 98 98 Oximetry ED Medical Decision Making - Lab Data Result diagrams: 03/06/22 21:02 03/06/22 21:02 - Medical Decision Making Labs grossly unremarkable except for plasma serum alcohol of 0.2 and mild hypokalemia of 3.1. Patient monitored in ED until back to baseline. Critical care attestation.: If time is entered above; I have spent that time in minutes in the direct care of this critically ill patient, excluding procedure time. ED Disposition Clinical Impression: Alcohol intoxication, Seizure Disposition: 01 HOME / SELF CARE / HOMELESS Is pt being admited?: No Does the pt Need Aspirin: No Condition: Stable Instructions: Alcohol Use Disorder, Epilepsy, [id number] Referrals: YAHAIRA IGLESIAS MD [Primary Care Provider] - 3-5 Days Time of Disposition: 15:34
[2022-03-06 21:43] LABS: Basophils # (Auto) 0.1 K/mm3 (0.0-0.1); Eosinophils # (Auto) 0.2 K/mm3 (0.0-0.4); Eosinophils % (Auto) 1.5 % (0.0-4.3); Hematocrit 41.7 % (35.5-45.6); Hemoglobin 13.8 gm/dl (11.8-15.2); Lymphocytes # (Auto) 2.9 K/mm3 (1.2-5.4); Lymphocytes % (Auto) 27.8 % (13.4-35.0); Mean Corpuscular HGB Conc 33 % (32-34); Mean Corpuscular Volume 93 fl (84-94); Monocytes # (Auto) 0.5 K/mm3 (0.0-0.8); Monocytes % (Auto) 5.1 % (0.0-7.3); Platelet Count 269 K/mm3 (140-440); Red Blood Count 4.47 M/mm3 (3.65-5.03); Red Cell Distribution Width 14.8 % (13.2-15.2)
[2022-03-06 21:54] LABS: Alanine Aminotransferase 18 units/L (7-56); Albumin 4.5 g/dL (3.9-5); BUN/Creatinine Ratio 10; Blood Urea Nitrogen 8 mg/dL (9-20); Calcium 9.8 mg/dL (8.4-10.2); Hemolysis Index 3
[2022-03-06] MEDS ORDERED: POTASSIUM CHLORIDE ER 20 MEQ TAB PO ONE (22:31)
[2022-03-06 22:35] LABS: Amphetamine Screen,Urine Negative; Benzodiazepines Screen,Urine Negative; Cannabinoid Screen,Urine Negative; Cocaine Screen,Urine Negative; Methadone Screen,Urine Negative; Opiate Screen,Urine Negative
[2022-03-07] MEDS ORDERED: SODIUM CHLORIDE 0.9% 1000 ML 1,000 ML ONE (02:34)
[2022-03-07] MEDS: POTASSIUM CHLORIDE 10 MEQ 10 MEQ/100 ML BAG IV SCH ×2 (02:44→04:48)
[2022-03-07] MEDS ORDERED: POTASSIUM CHLORIDE 10 MEQ 10 MEQ/100 ML BAG IV SCH (05:00)
[2022-03-07] MEDS ORDERED: POTASSIUM CHLORIDE ER 20 MEQ TAB PO ONE (05:10)
[2022-03-07 06:22] VITALS: BP 139/89
== END 2022-03-07 06:22 | disposition home or self-care (01) ==
LOC: ED 19:59
DX: R56.9 Unspecified convulsions (principal); I11.0 Hypertensive heart disease with heart failure; I50.9 Heart failure, unspecified; F20.9 Schizophrenia, unspecified; F31.9 Bipolar disorder, unspecified; F10.10 Alcohol abuse, uncomplicated; F17.290 Nicotine dependence, other tobacco product, uncomplicated
CPT/HCPCS: 36415; 80053; 80307; 85025; 96361; 96374; 99284; J2060; J3480; J7030; 80320; G0480

== ENCOUNTER 2022-03-07 16:02 | Emergency (ER) | payer MEDICARE ==
[2022-03-07] MEDS ORDERED: THIAMINE 100 MG, FOLIC ACID 1 MG, MULTIPLE VITAMIN INJ, ADULT 10 ML in SODIUM CHLORIDE ... IV ONE (17:00)
[2022-03-07 17:10] LABS: Hematocrit 41.9 % (35.5-45.6); Hemoglobin 13.5 gm/dl (11.8-15.2); Mean Corpuscular HGB Conc 32 % (32-34); Mean Corpuscular Volume 93 fl (84-94); Red Blood Count 4.49 M/mm3 (3.65-5.03); Red Cell Distribution Width 14.7 % (13.2-15.2)
[2022-03-07 17:18] LABS: Alanine Aminotransferase 20 units/L (7-56); Albumin 4.6 g/dL (3.9-5); BUN/Creatinine Ratio 7; Blood Urea Nitrogen 6 mg/dL (9-20); Calcium 9.2 mg/dL (8.4-10.2); Hemolysis Index 19
[2022-03-07 18:18] LABS: Basophils % (Manual) 0 % (0.0-1.8); Eosinophils % (Manual) 0 % (0.0-4.3); Total Cells Counted 100
[2022-03-07 18:19] LABS: Platelet Estimate Consistent w Auto; RBC Morphology Normal
[2022-03-07 18:24] LABS: Platelet Count 100 K/mm3 (140-440)
--- NOTE | 2022-03-07 18:43 | Emergency Department Report ---
ED General Adult HPI - General Chief complaint: Altered Mental Status Stated complaint: AMS Time Seen by Provider: 03/07/22 16:20 Source: EMS Mode of arrival: Stretcher Limitations: No Limitations - History of Present Illness Initial comments: pt found wandering on [address] BG per EMS was 26, pt given 1 amp of D5W, BG 213. -: hour(s) Severity scale (0 -10): 0 Consistency: constant Improves with: none Associated Symptoms: denies: denies other symptoms, confusion, chest pain, cough - Related Data Previous Rx's Medication Instructions Recorded Last Taken Type Multivitamin with Folic Acid [[facility] 400 mcg PO QDAY #30 tablet 06/18/20 Unknown Rx One Daily Essential Tablet] chlordiazePOXIDE [Librium] 25 mg PO Q6H PRN #25 capsule 06/18/20 Unknown Rx Allergies Allergy/AdvReac Type Severity Reaction Status Date / Time No Known Allergies Allergy Verified 11/13/18 22:07 ED Review of Systems ROS: Stated complaint: AMS Other details as noted in HPI Constitutional: denies: chills, fever Eyes: denies: eye pain, eye discharge, vision change ENT: denies: ear pain, throat pain Respiratory: denies: cough, shortness of breath, wheezing Cardiovascular: denies: chest pain, palpitations Endocrine: no symptoms reported Gastrointestinal: denies: abdominal pain, nausea, diarrhea Genitourinary: denies: urgency, dysuria Musculoskeletal: denies: back pain, joint swelling, arthralgia Skin: denies: rash, lesions Neurological: denies: headache, weakness, paresthesias Psychiatric: denies: anxiety, depression Hematological/Lymphatic: denies: easy bleeding, easy bruising ED Past Medical Hx - Past Medical History Previous Medical History?: Yes Hx Hypertension: Yes Hx Congestive Heart Failure: Yes Hx Seizures: Yes Hx Psychiatric Treatment: Yes (schizophrenia, bi polar) Additional medical history: ETOH abuse - Social History Smoking Status: Current Every Day Smoker Substance Use Type: Alcohol - Medications Home Medications: Home Medications Medication Instructions Recorded Confirmed Last Taken Type Multivitamin with Folic Acid [[facility] 400 mcg PO QDAY #30 tablet 06/18/20 Unknown Rx One Daily Essential Tablet] chlordiazePOXIDE [Librium] 25 mg PO Q6H PRN #25 capsule 06/18/20 Unknown Rx ED Physical Exam - General Limitations: No Limitations General appearance: alert, appears intoxicated, cachectic - Head Head exam: Present: atraumatic, normocephalic - Eye Eye exam: Present: normal appearance - ENT ENT exam: Present: mucous membranes moist - Neck Neck exam: Present: normal inspection - Respiratory Respiratory exam: Present: normal lung sounds bilaterally. Absent: respiratory distress - Cardiovascular Cardiovascular Exam: Present: normal rhythm, tachycardia. Absent: systolic murmur, diastolic murmur, rubs, gallop - GI/Abdominal GI/Abdominal exam: Present: soft, normal bowel sounds - Rectal Rectal exam: Present: deferred - Extremities Exam Extremities exam: Present: normal inspection - Back Exam Back exam: Present: normal inspection - Neurological Exam Neurological exam: Present: alert, oriented X3 - Psychiatric Psychiatric exam: Present: normal affect, normal mood - Skin Skin exam: Present: warm, dry, intact, normal color. Absent: rash ED Course Vital Signs 03/07/22 03/07/22 16:11 17:46 Temperature 98.6 F Pulse Rate 105 H Respiratory 18 117 H Rate Blood Pressure 142/86 [Left] O2 Sat by Pulse 99 98 Oximetry ED Medical Decision Making - Lab Data Result diagrams: 03/07/22 16:38 03/07/22 16:38 Critical care attestation.: If time is entered above; I have spent that time in minutes in the direct care of this critically ill patient, excluding procedure time. ED Disposition Clinical Impression: Alcohol intoxication, Hypoglycemia Disposition: 01 HOME / SELF CARE / HOMELESS Is pt being admited?: No Does the pt Need Aspirin: No Condition: Stable Instructions: Hypoglycemia Referrals: YAHAIRA IGLESIAS MD [Primary Care Provider] - 3-5 Days
[2022-03-07 18:47] VITALS: BP 142/90
--- NOTE | 2022-03-08 10:42 | Electrocardiograph Report ---
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
== END 2022-03-07 19:00 | disposition home or self-care (01) ==
LOC: ED 16:02
DX: F10.129 Alcohol abuse with intoxication, unspecified (principal); E16.2 Hypoglycemia, unspecified; I11.0 Hypertensive heart disease with heart failure; I50.9 Heart failure, unspecified; R56.9 Unspecified convulsions; F31.9 Bipolar disorder, unspecified; F20.9 Schizophrenia, unspecified; F17.290 Nicotine dependence, other tobacco product, uncomplicated
CPT/HCPCS: 36415; 80053; 82550; 82962; 84484; 85007; 85025; 93005; 96365; 96366; 99284; J3411; J3490; J7030; 80320; G0480

== ENCOUNTER 2022-03-11 13:47 | Emergency (ER) | payer MEDICARE ==
[2022-03-11 13:53] VITALS: BP 134/80
[2022-03-11] MEDS ORDERED: LORazepam 2 MG/ML VIAL IM PRN (13:53)
[2022-03-11] MEDS ORDERED: HALOPERIDOL LACTATE 5 MG/1 ML INJ IM PRN (13:53)
[2022-03-11] MEDS ORDERED: chlordiazePOXIDE 25 MG CAP PO PRN (13:53)
--- NOTE | 2022-03-11 13:55 | Event Note ---
Date: 03/11/22 The patient was evaluated in the emergency department for symptoms described in the history of present illness. He/she was evaluated in the context of the global COVID-19 pandemic, which necessitated consideration that the patient might be at risk for infection with the virus that causes COVID-19. Institutional protocols and algorithms that pertain to the evaluation of patients at risk for COVID-19 are in a state of rapid change based on information released by regulatory bodies including the CDC and federal and state organizations. These policies and algorithms were followed during the patient's care in the emergency department. Please note that these policies, procedures and recommendations changed on a rapid basis. EMS documentation not available at time of chart dictation Verbal report received from emergency medical services. Medical screening examination note: 51-year-old gentleman brought to the hospital by EMS with an EMS articulated complaint of nontraumatic alcohol intoxication. Apparently 911 was activated, and patient was offered chcf or presenting to the emergency room. EMS reports unremarkable vital signs in the field. The patient is awake, intoxicated, and ambulatory with an unsteady gait. He recently had unremarkable laboratory studies at this facility, with the exception of a mildly elevated CK. Holding orders initiated. Detailed history and physical to be performed by oncoming provider. Patient is awake, breathing spontaneously, protecting his airway and moving 4 extremities Vital Signs 03/11/22 13:50 Temperature 98.0 F Pulse Rate 88 Respiratory 18 Rate Blood Pressure 134/80 [Left] O2 Sat by Pulse 99 Oximetry
[2022-03-12] MEDS ORDERED: MULTIVITAMINS ,THERAPEUTIC TAB PO SCH (10:00)
== END 2022-03-11 14:00 | disposition left against medical advice (07) ==
LOC: ED 13:47
DX: Z00.00 Encounter for general adult medical examination without abnormal findings (principal); Z53.21 Procedure and treatment not carried out due to patient leaving prior to being seen by health care provider